=== PATIENT | male | born 1965 | race Caucasian/White ===

== ENCOUNTER 2019-05-16 21:28 | Emergency (ER) | payer BC ==
[~2019-05-16] VITALS: Ht 177.8 cm; Wt 95.0 kg
[2019-05-16] MEDS ORDERED: TRAZODONE50 MG PO (21:46)
[2019-05-16] MEDS ORDERED: LEVOTHYROXIN75 MCG PO (21:47)
[2019-05-16] MEDS ORDERED: ASPIRIN EC325 MG PO (21:47)
[2019-05-16] MEDS ORDERED: AMLODIPINE5 MG PO (21:48)
[2019-05-16] MEDS ORDERED: LANTUS100 UNIT/M SC (21:49)
[2019-05-16] MEDS ORDERED: NOVOLOG100 UNIT/M (21:49)
[2019-05-16 22:24] LABS: HEMATOCRIT 43.2 % (39.0-50.0); HEMOGLOBIN 14.7 g/dl (14.0-18.0); IMMATURE GRANULOCYTES 0.3 % (0.0-5.0); MEAN CELL VOLUME 90.6 fL CALC (80.0-100.0); MEAN CORPUSCULAR HGB 30.8 pG CALC (26.0-32.0); NEUT# 5.52 thou/uL (1.82-7.42); RED BLOOD COUNT 4.77 mill/uL (4.70-6.10); RED CELL DISTRI WIDTH 12.3 % (11.5-15.5)
[2019-05-16 22:46] LABS: ACT PARTIAL THROMBO TIME 30.6 SECONDS (20.0-32.5); D-DIMER 1.13 mg/L (0.19-0.60)
[2019-05-16 22:49] LABS: ALBUMIN 4.4 g/dL (3.2-5.0); ALKALINE PHOSPHATASE 124 u/l (38-126); AMYLASE 46 u/l (30-110); ANION GAP 14 (6-22 (CALC)); BILIRUBIN, TOTAL 0.6 mg/dL (0.0-1.4); BUN 19 mg/dL (9-20); BUN/CREATININE RATIO 27 (12-20 (CALC)); CARBON DIOXIDE 24 mmol/l (22-30); CHLORIDE 105 mmol/l (95-108); CREATININE 0.7 mg/dL (0.7-1.3); GFR > 60 ML/MIN (>=60 (CALC)); GFR FOR AFR.AMER. > 60 ML/MIN (>=60 (CALC)); LIPASE 120 u/l (23-300); POTASSIUM 3.9 mmol/l (3.5-5.1); SGOT/AST 43 u/l (17-59); SODIUM 139 mmol/l (137-146); TOTAL PROTEIN 7.5 g/dL (6.3-8.2)
[2019-05-16 22:59] LABS: MYOGLOBIN 38 ng/mL (0 - 121)
[2019-05-17] MEDS ORDERED: DOXYCYCL HYC100 MG PO (00:36)
[2019-05-17 00:58] VITALS: BP 142/91
== END 2019-05-17 00:58 | disposition home or self-care (01) | DRG 204 ==
LOC: ED 21:28
PROVIDERS: Family Medicine
DX: R06.00 Dyspnea, unspecified (principal); L03.116 Cellulitis of left lower limb; E11.9 Type 2 diabetes mellitus without complications; I10 Essential (primary) hypertension; Z79.4 Long term (current) use of insulin; Z95.2 Presence of prosthetic heart valve
CPT/HCPCS: Q9967

== ENCOUNTER 2019-06-21 09:22 | Emergency (ER) | payer BC ==
[~2019-06-21] VITALS: Ht 177.8 cm; Wt 93.6 kg
[~2019-06-21 09:22] MED LIST: AMLODIPINE5 MG PO; ASPIRIN EC325 MG PO; DOXYCYCL HYC100 MG PO; LANTUS100 UNIT/M SC; LEVOTHYROXIN75 MCG PO; NOVOLOG100 UNIT/M; TRAZODONE50 MG PO
[2019-06-21 09:24] VITALS: BP 171/98
[2019-06-21 10:13] LABS: HEMOGLOBIN 15.9 g/dl (14.0-18.0); IMMATURE GRANULOCYTES 0.3 % (0.0-5.0); MEAN CELL VOLUME 88.6 fL CALC (80.0-100.0); MEAN CORPUSCULAR HGB 30.6 pG CALC (26.0-32.0); MEAN CORPUSCULAR HGB CONC 34.6 g/L CALC (32.0-36.0); NEUT# 6.96 thou/uL (1.82-7.42); RED BLOOD COUNT 5.19 mill/uL (4.70-6.10); RED CELL DISTRI WIDTH 12.4 % (11.5-15.5)
[2019-06-21 11:05] LABS: ALBUMIN 4.1 g/dL (3.2-5.0); ALKALINE PHOSPHATASE 121 u/l (38-126); ANION GAP 15 (6-22 (CALC)); BILIRUBIN, TOTAL 0.7 mg/dL (0.0-1.4); BUN 16 mg/dL (9-20); BUN/CREATININE RATIO 29 (12-20 (CALC)); CARBON DIOXIDE 22 mmol/l (22-30); CHLORIDE 105 mmol/l (95-108); CREATININE 0.6 mg/dL (0.7-1.3); GFR > 60 ML/MIN (>=60 (CALC)); GFR FOR AFR.AMER. > 60 ML/MIN (>=60 (CALC)); LIPASE 52 u/l (23-300); SGOT/AST 64 u/l (17-59); SODIUM 139 mmol/l (137-146); TOTAL PROTEIN 7.1 g/dL (6.3-8.2)
[2019-06-21] MEDS ORDERED: TERBINAFINE250 M1 PO (11:59)
[2019-06-21] MEDS ORDERED: CIPROFLOXACIN500 M1 PO (11:59)
[2019-06-21] MEDS ORDERED: METRONIDAZOL500 MG PO (11:59)
[2019-06-21] MEDS ORDERED: ONDANSETRON4 MG PO (12:00)
[2019-06-21 12:44] LABS: URINE BILIRUBIN - DIPSTICK NEGATIVE (NEGATIVE); URINE BLOOD DIPSTICK NEGATIVE (NEGATIVE); URINE COLOR YELLOW; URINE GLUCOSE - DIPSTICK NEGATIVE (NEGATIVE); URINE KETONE NEGATIVE (NEGATIVE); URINE LEUK ESTERASE NEGATIVE (NEGATIVE); URINE NITRITE - DIPSTICK NEGATIVE (Negative); URINE PROTEIN - DIPSTICK NEGATIVE (NEG-TRACE); URINE UROBILINOGEN - DIPSTICK 0.2 E.U./dL (0.2)
== END 2019-06-21 12:34 | disposition home or self-care (01) | DRG 392 ==
LOC: ED 09:22
PROVIDERS: Family Medicine
DX: K57.32 Diverticulitis of large intestine without perforation or abscess without bleeding (principal); B37.2 Candidiasis of skin and nail; E11.9 Type 2 diabetes mellitus without complications; I10 Essential (primary) hypertension; E03.9 Hypothyroidism, unspecified; Z95.2 Presence of prosthetic heart valve; Z79.4 Long term (current) use of insulin
CPT/HCPCS: Q9967